=== PATIENT | female | born 1965 | race African-American/Black ===

== ENCOUNTER 2019-01-05 21:26 | Emergency (ER) | payer MEDICAID ==
[~2019-01-05] VITALS: Ht 167.6 cm; Wt 97.5 kg
--- NOTE | 2019-01-05 21:50 | NUR ---
PATIENT REFUSED TO HAVE VISUAL ACUITY TO BE DONE. ERMD AWARE
[2019-01-05] MEDS ORDERED: FLUORESCEIN SODIUM 1 MG STRIP ONE (22:20)
[2019-01-05] MEDS ORDERED: TETRACAINE HCL 0.5% OPHT DROP 2 ML BOTTLE ONE (22:20)
[2019-01-05] MEDS ORDERED: FLUORESCEIN SODIUM 1 MG STRIP OP ONE (22:30)
[2019-01-05] MEDS ORDERED: TETRACAINE HCL 0.5% OPHT DROP 2 ML BOTTLE OP ONE (22:30)
--- NOTE | 2019-01-05 22:55 | NUR ---
Patient discharged to home in stable conditon. Written and verbal after care instructions given. Patient verbalizes understanding of instructions. Pt ambulated out of ER with steady gait, no acute signs of distress, VSS, all belongings taken.
[2019-01-05 22:56] VITALS: BP 140/83
== END 2019-01-05 22:57 | disposition home or self-care (01) ==
LOC: ER 21:26
DX: S05.02XA Injury of conjunctiva and corneal abrasion without foreign body, left eye, initial encounter (principal); X58.XXXA Exposure to other specified factors, initial encounter; Y93.89 Activity, other specified; Y92.89 Other specified places as the place of occurrence of the external cause; Y99.8 Other external cause status
CPT/HCPCS: A4663

== ENCOUNTER 2025-03-17 20:04 | Emergency (ER) | payer MEDICAID, OTHER ==
[~2025-03-17] VITALS: Ht 167.6 cm; Wt 81.6 kg
[2025-03-17 20:04] VITALS: BP 144/82; O2SAT 97
== END 2025-03-17 21:00 | disposition left against medical advice (07) ==
LOC: ER 20:04
DX: R51.9 Headache, unspecified (principal); Z60.2 Problems related to living alone; Z86.79 Personal history of other diseases of the circulatory system; Z53.21 Procedure and treatment not carried out due to patient leaving prior to being seen by health care provider
CPT/HCPCS: A4606; A4663